=== PATIENT | male | born 1995 | race Caucasian/White ===

== ENCOUNTER 2021-08-18 15:32 | Emergency (ER) | payer SELFPAY ==
[2021-08-18] MEDS ORDERED: Sodium Chloride 0.9% 10 ML Syringe FLUSH PRN (16:00)
--- NOTE | 2021-08-18 16:03 | EDM.PDOC ---
ED HPI GENERAL MEDICAL PROBLEM - General Chief Complaint: Chest Pain Stated Complaint: [facility] Time Seen by Provider: 08/18/21 15:50 Source of Information: Reports: Patient, RN Notes Reviewed - History of Present Illness INITIAL COMMENTS - FREE TEXT/NARRATIVE: 26 yr old male comes in with chest discomfort and palpitations that just started about 2 hrs ago. He had a few jolts of discomfort across his chest and than feels like his heart was going fast. He did feel dizzy, lightheaded and than did develop some numbness and tingling of both hands. That is now gone at time of my exam. He still has very mild tightness across his chest. No radiation to shoulder or arm. No recent cough, fever, chills or difficulty breathing. He has been under a lot of stress this past month. He also did have a fair amt of alcohol last evening. No hx of Htn, diabetes, CAD. Does not smoke. Treatments EXTRA HAND: Reports: IV/IO Chest Pain Score (Numeric/FACES): 2 - Related Data Allergies Allergy/AdvReac Type Severity Reaction Status Date / Time No Known Allergies Allergy Verified 08/18/21 15:50 Home Meds: Home Meds . [No Known Home Meds] 08/18/21 [History] Past Medical History - Infectious Disease History Infectious Disease History: Reports: Novel Coronavirus - Past Surgical History GI Surgical History: Reports: Hernia, Abdominal Social & Family History - Tobacco Use Tobacco Use Status *Q: Never Tobacco User - Caffeine Use Caffeine Use: Reports: Coffee - Recreational Drug Use Recreational Drug Use: No ED ROS GENERAL - Review of Systems Review Of Systems: See Below Constitutional: Denies: Fever, Chills, Diaphoresis HEENT: Reports: No Symptoms Respiratory: Denies: Shortness of Breath, Pleuritic Chest Pain, Cough Cardiovascular: Reports: Chest Pain GI/Abdominal: Denies: Abdominal Pain, Nausea, Vomiting Musculoskeletal: Denies: Neck Pain, Shoulder Pain, Arm Pain, Back Pain Skin: Reports: No Symptoms Neurological: Reports: Dizziness (gone) ED EXAM, GENERAL - Physical Exam Exam: See Below General Appearance: Alert, Anxious (mild) Throat/Mouth: Normal Inspection Head: Atraumatic Neck: Supple Respiratory/Chest: No Respiratory Distress, Lungs Clear, Normal Breath Sounds Cardiovascular: Tachycardia GI/Abdominal: Non-Tender Back Exam: No: CVA Tenderness (L), CVA Tenderness (R) Extremities: Normal Inspection. No: Pedal Edema, Leg Pain, Increased Warmth, Redness Neurological: Alert, Oriented, No Motor/Sensory Deficits Skin Exam: Warm, Dry, Normal Color #1 Interpretation EKG Date: 08/18/21 Rhythm: NSR Rate (Beats/Min): 116 [place]: Normal P-Wave: Present QRS: Normal ST-T: Other (T wave inversion lead III and AVF) Course - Vital Signs Last Recorded V/S: Last Vital Signs Temp 97.9 F 08/18/21 18:59 Pulse 94 08/18/21 18:59 Resp 14 08/18/21 18:59 BP 166/101 H 08/18/21 18:59 Pulse Ox 97 08/18/21 18:59 - Orders/Labs/Meds Orders: Active Orders 24 hr Category Date Time Status Peripheral IV Insertion Adult [OM.PC] Stat Oth 08/18/21 16:01 Ordered Labs: Laboratory Tests 08/18/21 08/18/21 08/18/21 Range/Units 15:55 15:55 16:30 WBC 4.63 (4.23-9.07) K/mm3 RBC 4.88 (4.63-6.08) M/mm3 Hgb 15.1 (13.7-17.5) gm/dl Hct 43.3 (40.1-51.0) % MCV 88.7 (79.0-92.2) fl MCH 30.9 (25.7-32.2) pg MCHC 34.9 (32.2-35.5) g/dl RDW Std Deviation 39.3 (35.1-43.9) fL Plt Count 249 (163-337) K/mm3 MPV 10.3 (9.4-12.3) fl Neut % (Auto) 52.5 (34.0-67.9) % Lymph % (Auto) 25.5 (21.8-53.1) % [place] % (Auto) 14.5 H (5.3-12.2) % Eos % (Auto) 6.5 (0.8-7.0) Baso % (Auto) 0.6 (0.1-1.2) % Neut # (Auto) 2.43 (1.78-5.38) K/mm3 Lymph # (Auto) 1.18 L (1.32-3.57) K/mm3 [place] # (Auto) 0.67 (0.30-0.82) K/mm3 Eos # (Auto) 0.30 (0.04-0.54) K/mm3 Baso # (Auto) 0.03 (0.01-0.08) K/mm3 Sodium 137 (136-145) mEq/L Potassium 3.3 L (3.5-5.1) mEq/L Chloride 104 (98-107) mEq/L Carbon Dioxide 22 (21-32) mEq/L Anion Gap 14.3 (5-15) BUN 16 (7-18) mg/dL Creatinine 1.1 (0.7-1.3) mg/dL Est Cr Clr Drug Dosing 104.15 mL/min Estimated GFR (MDRD) > 60 (>60) mL/min BUN/Creatinine Ratio 14.5 (14-18) Glucose 157 H (70-99) mg/dL Calcium 8.4 L (8.5-10.1) mg/dL Total Bilirubin 0.4 (0.2-1.0) mg/dL AST 29 (15-37) U/L ALT 64 H (16-63) U/L Alkaline Phosphatase 73 (46-116) U/L Troponin I < 0.017 (0.00-0.056) ng/mL Total Protein 6.9 (6.4-8.2) g/dl Albumin 4.0 (3.4-5.0) g/dl Globulin 2.9 gm/dL Albumin/Globulin Ratio 1.4 (1-2) SARS-CoV-2 RNA (DAVID) Negative (NEGATIVE) Meds: Medications Discontinued Medications Generic Name Dose Route Start Last Admin Trade Name Freq PRN Reason Stop Dose Admin Influenza Virus Vaccine 60 mcg 08/18/21 17:00 08/18/21 16:36 Flu Vacc [id number] 36mos Up/Pf 60 Mcg/0.5 Ml Syringe IM 08/18/21 17:01 60 mcg .ONCE ONE Administration Lorazepam 0.5 mg 08/18/21 16:15 08/18/21 16:40 Lorazepam 2 Mg/Ml Sdv IVPUSH 08/18/21 16:16 0.5 mg ONETIME ONE Administration Metoprolol Tartrate 50 mg 08/18/21 16:15 08/18/21 16:42 Metoprolol Tartrate 50 Mg Tab PO 08/18/21 16:16 50 mg ONETIME ONE Administration Sodium Chloride 10 ml 08/18/21 16:00 08/18/21 16:43 Sodium Chloride 0.9% 10 Ml Syringe FLUSH 10 ml ASDIRECTED PRN Administration Keep Vein Open - Re-Assessments/Exams Free Text/Narrative Re-Assessment/Exam: 08/18/21 18:21 Feeling much better, have given ativan IV, 50 mg metropolol PO. BP has come down to 170/90. Heart rated 101. Chest tightness is gone. trop, other labs normal. Still awaiting covid screen. 08/18/21 18:39. covid neg. BP 159/88 Departure - Departure Time of Disposition: 18:39 Disposition: Home, Self-Care 01 Condition: Fair Clinical Impression: Atypical chest pain, Palpitations Instructions: Nonspecific Chest Pain, Adult, [id number], Hypertension, Adult, [id number], Palpitations, [id number] Referrals: PCP,None [Primary Care Provider] - Forms: ED Department Discharge Additional Instructions: Get a BP unit and check your BP and heart rate 2 to 3 times a day for the next 7 to 10 days. Keep a record of that data and bring that for your next clinc appointment. See one of our clinic providers in about 7 to 10 days, call [phone] Martinez or Dr Holder recomended. Return to ED as needed if symptoms worsening in any way. Sepsis Event Note (ED) - Evaluation Sepsis Screening Result: No Definite Risk - My Orders Last 24 Hours: My Active Orders 08/18/21 16:01 Peripheral IV Insertion Adult [OM.PC] Stat - Assessment/Plan Last 24 Hours: My Active Orders 08/18/21 16:01 Peripheral IV Insertion Adult [OM.PC] Stat
[2021-08-18] MEDS ORDERED: Metoprolol Tartrate 50 MG Tab PO ONE (16:15)
[2021-08-18] MEDS ORDERED: LORazepam 2 MG/ML SDV IVPUSH ONE (16:15)
[2021-08-18] MEDS ORDERED: FLU Vacc QS2021-22 36MOS UP/PF 60 MCG/0.5 ML Syringe IM ONE (17:00)
--- NOTE | 2021-08-18 17:39 | CR ---
Chest: Portable view of the chest was obtained. Comparison: No prior chest imaging is available. Heart size and mediastinum are within normal limits. Lungs are clear with no acute parenchymal change. Bony structures show nothing acute. Impression: 1. Nothing acute is seen on portable chest x-ray. Diagnostic code #1
== END 2021-08-18 19:00 | disposition home or self-care (01) ==
LOC: JD.ED 15:32
DX: R07.89 Other chest pain (principal); R00.2 Palpitations; Z86.16 Personal history of COVID-19; Z20.822 Contact with and (suspected) exposure to COVID-19; Z23 Encounter for immunization
CPT/HCPCS: 36415; 71045; 80053; 84484; 85025; 87635; 90471; 90686; 93005; 96374; 99285; A9270; J2060; G0008; U0002

== ENCOUNTER 2023-07-22 09:41 | Emergency (ER) | payer BC ==
[2023-07-22 10:34] LABS: BASOPHILS ABSOLUTE AUTO 0.1 K/mm3 (0.0-0.2); BASOPHILS PERCENT AUTO 0.6 % (0.0-1.0); EOSINOPHILS ABSOLUTE AUTO 0.1 K/mm3 (0.0-0.4); EOSINOPHILS PERCENT AUTO 1.5 % (0.0-6.0); HEMATOCRIT 44.6 % (42.0-52.0); HEMOGLOBIN 15.9 gm/dl (14.0-18.0); IMMATURE GRAN ABSOLUTE AUTO 0.04 K/mm3 (0.00-0.05); IMMATURE GRAN PERCENT AUTO 0.4 % (0.0-0.4); LYMPHOCYTES ABSOLUTE AUTO 1.4 K/mm3 (1.0-4.8); LYMPHOCYTES PERCENT AUTO 14.6 % (24.0-44.0); MEAN CORPUSCULAR HEMOGLOBIN 31.4 pg (28.0-32.0); MEAN CORPUSCULAR HGB CONC 35.7 g/dl (32.0-36.0); MEAN PLATELET VOLUME 10.5 fl (9.4-12.4); MONOCYTES ABSOLUTE AUTO 1.1 K/mm3 (0.0-0.8); MONOCYTES PERCENT AUTO 11.8 % (0.0-8.0); NEUTROPHILS ABSOLUTE AUTO 6.7 K/mm3 (1.8-7.7); NEUTROPHILS PERCENT AUTO 71.1 % (41.0-71.0); PLATELET COUNT,PLT 250 K/mm3 (150-400); RED BLOOD CELL COUNT 5.07 M/mm3 (4.52-5.90); WHITE BLOOD CELL COUNT,WBC 9.36 K/mm3 (3.9-11.3)
[2023-07-22 11:18] LABS: A/G RATIO 1.3 (1-2); ALANINE AMINOTRANSFERASE,ALT 91 U/L (16-63); ALBUMIN 4.4 g/dl (3.4-5.0); ALKALINE PHOSPHATASE 82 U/L (46-116); ANION GAP 16.1 (5-15); ASPARTATE AMNIOTRANSFERASE,AST 32 U/L (15-37); BILIRUBIN TOTAL 0.6 mg/dL (0.2-1.0); BLOOD UREA NITROGEN,BUN 18 mg/dL (7-18); CALCIUM 10.2 mg/dL (8.5-10.1); CARBON DIOXIDE,CO2 24 mEq/L (21-32); CHLORIDE,CL 101 mEq/L (98-107); CREATININE 0.9 mg/dL (0.7-1.3); EST CRCL DRUG DOSING (CG) 126.17 mL/min; ESTIMATED GFR 119 mL/min (>60); GLUCOSE RANDOM 121 mg/dL (70-99); POTASSIUM,K 4.1 mEq/L (3.5-5.1); PROTEIN TOTAL,TP 7.7 g/dl (6.4-8.2); SODIUM,NA 137 mEq/L (136-145)
[2023-07-22 11:32] LABS: TROPONIN I HIGH SENSITIVITY < 4 pg/mL (<=76)
== END 2023-07-22 12:55 | disposition home or self-care (01) ==
LOC: JD.ED 09:41
DX: R07.89 Other chest pain (principal); R06.02 Shortness of breath; I10 Essential (primary) hypertension; Z87.891 Personal history of nicotine dependence; Z86.16 Personal history of COVID-19
CPT/HCPCS: 36415; 71046; 71046-26; 80053; 84484; 85025; 93005; 99285